=== PATIENT | female | born 1990 | race Hispanic/Latino ===

== ENCOUNTER 2018-01-22 18:38 | Emergency (ER) | payer OTHER ==
[~2018-01-22] VITALS: Ht 152.4 cm; Wt 59.0 kg
== END 2018-01-22 19:04 | disposition home or self-care (01) ==
LOC: FSED 18:38
DX: K08.89 Other specified disorders of teeth and supporting structures (principal); Z33.1 Pregnant state, incidental
CPT/HCPCS: 99283